=== PATIENT | male | born 1945 | race Caucasian/White ===

== ENCOUNTER 2016-08-14 14:01 | Inpatient (IN) | payer MEDICARE ==
[~2016-08-14] VITALS: Ht 180.3 cm; Wt 77.7 kg
--- NOTE | ~2016-08-14 | HP ---
PATIENT'S NAME: JEREMIAH GARCIA [facility] AGE: 71 Y [address] ROOM: G32[address] [place], [place] [address] LOCATION: [facility] [place] ADMIT DATE: 08/14/2016 History & Physical DISCHARGE DATE: FAMILY PHYSICIAN: PHYSICIAN, UNKNOWN ATTENDING PHYSICIAN: GRAY DE SOUZA DATE OF SERVICE: ADDENDUM: The addendum is because of the report of the CT abdomen and pelvis without contrast and a CT of the chest without contrast just came back. I have went over the findings with the patient and updated the patient about further plan in care. CT abdomen and pelvis without contrast report show widespread metastatic disease. Possible pancreatic primary. Also, possible primary at the right lung base. Bilateral lung bases and pleural nodules suspicious of metastasis. Diffuse liver metastases and likely peritoneal carcinomatosis. If the patient's condition allows, recommend pancreatic protocol CT with contrast to better evaluate. CT of the chest without contrast showed favor diagnosis to be pancreatic primary tumor with lung and pleural and liver metastases with peritoneal carcinomatosis. However, still could not exclude the possibility of a posterior right lower lobe primary lesion. Lack of mediastinal adenopathy argues against a lung primary. Pancreatic protocol CT with contrast might be helpful in further evaluation. If the patient could not get contrast, a noncontrast MRI may also be helpful. Ultimately, tissue diagnosis is required to make a diagnosis and liver biopsy will likely be the highest yield at a lowest risk and if recommended to have a liver biopsy on August 15, 2016 and then a repeat platelet and also coagulation profile should be obtained and the patient should be n.p.o. after midnight and schedule the procedure with interventional radiologist at extension [phone] in the morning. When this finding came back, I went back to the room to explain about the finding to the patient and the patient's family member and nurses in the room. All these are new findings and the plan now I will be coordinating MRI noncontrast of the abdomen and pelvis in the morning and repeat blood work including platelets and coagulation profile and have the hospitalist who is working tomorrow on August 15, 2016 who will be taking over the care to schedule the procedure for the liver biopsy with Interventional Radiology at extension 5317 in the morning. The patient will be n.p.o. after midnight. IV meropenem could be discontinued if there is no further concern about cholecystitis or ascending cholangitis in the morning. I will also be consulting the Oncology in the morning. I will also be consulting GI in the morning. The reason for GI consult will be the pancreatic mass to see if ERCP or endoscopic ultrasound could be performed if necessary to get the pancreatic mass biopsy to make a final diagnosis. For now, I am not going to consult Pulmonology or General Surgery, but could be consulted if necessary with PATIENT'S NAME: JEREMIAH GARCIA [facility] AGE: 71 Y [address] ROOM: [address] [address] LOCATION: [facility] [place] ADMIT DATE: 08/14/2016 History & Physical DISCHARGE DATE: FAMILY PHYSICIAN: PHYSICIAN, UNKNOWN ATTENDING PHYSICIAN: GRAY DE SOUZA Pulmonology for questionable right lower lung primary lung cancer and General Surgery if pancreatic mass resection will be necessary. The reason for the Oncology consult in the morning, which I will be ordering is to keep the oncologist in the loop and the patient will likely require chemotherapy, radiation, or surgical resection depending on Oncology evaluation. Further plan depends on clinical course. Currently, there is no concern for ascending cholangitis given that the common bile duct is normal in diameter and also normal in the intrahepatic ducts. We can consider discontinuing the IV meropenem in the morning if there is no further concern about ascending cholangitis or cholecystitis given that the ultrasound of the abdomen did show diffuse thick wall of the gallbladder, but no stone, pericholecystic fluid, or edema. The patient also does not have any pain in the abdomen. Consider discontinuing IV meropenem in the morning if adequate. I went over the plan of care with the patient and answered every single question that the patient had to his satisfaction. GRAY DE SOUZA MD CC/stacia /[id number] D: T: HISTORY & PHYSICAL
--- NOTE | ~2016-08-14 | DS ---
PATIENT'S NAME: JEREMIAH GARCIA [facility] AGE: 71 Y [address] ROOM: [address] [place], [place] [address] [place] [facility] [place]MIT DATE: 08/14/2016 Discharge Summary DISCHARGE DATE: 08/17/2016 FAMILY PHYSICIAN: Luiza Tarango MD ATTENDING PHYSICIAN: Isaias Gottlieb PRINCIPAL DIAGNOSES: 1. Diffuse metastatic disease. 2. Acute kidney injury on chronic kidney disease 3. 3. Transaminitis. 4. Mild ascites. 5. Diabetes mellitus type 2, insulin dependent. 6. Hypothyroidism. 7. Essential hypertension. PRINCIPAL PROCEDURE: Liver biopsy done by Dr. Ochoa on 08/15. CONSULTING PROVIDERS: Dr. Hutson of Oncology and Erinn Krishnamurthy APRN, of Gastroenterology. HOSPITAL COURSE: Please reference any admitting data to the history and physical as dictated by Dr. Isaias Gottlieb. This is a 71-year-old male who was having increasing abdominal distention and was found to have elevated liver functions, was admitted to the hospital for further diagnostic testing. CTA abdomen and pelvis for further evaluation had shown a widespread metastatic disease to include areas of the pancreas, liver, and lungs. An abdominal ultrasound did not show any discrete mass in the liver, but was very abnormal, mild ascites was noted and mild splenomegaly. For that result, an MRI of the abdomen was obtained, which showed further involvement of the liver and regional lymph node metastasis as well as peritoneal carcinomatosis. The lung lesions appeared to be metastasis as well. Concerns were for primary pancreatic, but primary uncertain. Initially, he was covered for concerns of cholangitis or cholecystitis with meropenem, but this was then discontinued without any evidence of infection or obstruction. A liver biopsy was ordered and obtained without complication. Post-liver biopsy, Oncology consultation was obtained for further recommendations. Specific labs were ordered and are still pending on the day of discharge. His post-biopsy course was relatively unremarkable. He did get IV fluids for an acute kidney injury initially showing a creatinine of 2.2 when his baseline was found to be between 1.5 and 2.0, this was corrected and was 1.4 on the day of discharge. He was started on Aldactone and low-dose loop diuretic without any complications. Constipation contributed to his abdominal distention. X-ray did not show any obstructive pattern. He was given a healthy bowel regimen. Because of his recent ultrasound with mild ascites, there was no further concern. Liver functions showed elevated AST, ALT, and alkaline phosphatase with normal total PATIENT'S NAME: JEREMIAH GARCIA [facility] AGE: 71 Y [address] ROOM: [address] [place], [place] [address] LOCATION: [facility] [place] ADMIT DATE: 08/14/2016 Discharge Summary DISCHARGE DATE: 08/17/2016 FAMILY PHYSICIAN: Luiza Tarango MD ATTENDING PHYSICIAN: Isaias Gottlieb. He was relatively asymptomatic. Hepatitis screen was negative. He did have a Choudhary catheter placed during his stay and was removed on the day of discharge. The patient does self-cath at home without concern or complication. DVT prophylaxis was maintained with pneumatic compression devices. Pain control was optimized with oral oxycodone. The patient was mobilizing independently and safely at the time of discharge. LABORATORY FINDINGS: Blood sugars were monitored without any critical results. A CBC on 08/15 showed white blood cell count of 9.9, hemoglobin of 11.7, hematocrit of 35.5, and a platelet count of 242. A chemistry panel showed a glucose of 179; a BUN of 26; a creatinine of 1.4, down from 2.2, 2.3; sodium of 139; potassium of 4.3, down from 5.6; chloride of 106; CO2 of 24; calcium of 7.8; total protein of 5.2; albumin of 1.9; AST of 115; ALT of 99; alkaline phosphatase of 868; total bilirubin of 0.7; magnesium of 2.1; hemoglobin A1c was 7.3; and INR was 1.21. Urinalysis showed clear yellow urine, a specific gravity of 1.005, a pH of 5.0, leukocytes of 25, nitrites negative, protein 15, glucose negative, ketone negative, urobilinogen negative, bilirubin negative, blood negative, white blood cells 0 to 2, red blood cells negative, epithelial 0 to 2, bacteria were not seen, hyaline casts were 2 to 5. Urine sodium random was 41, and a urine creatinine ratio was 75.0. A GGT level was 387. Procalcitonin was 1.27. Hepatitis panel was negative. Microanalysis: Blood cultures were negative. Urine culture showed contaminants. Liver tissue showed carcinoma and was sent out to [facility] for further evaluation. Pending at the time of discharge were lab values to include alpha-fetoprotein, CEA, CA-125, CA-19-9, and a PSA. DISCHARGE MEDICATIONS: 1. Cymbalta 30 mg p.o. every day. 2. Proscar 5 mg p.o. every day. 3. Fluticasone 50 mcg per puff, 1 spray each nostril every day. 4. Torsemide 20 mg p.o. every day. 5. Neurontin 300 mg p.o. twice daily. 6. Insulin glargine 20 units subcutaneous every night at bedtime. 7. Xalatan 1 drop to each eye every night at bedtime. 8. Levothyroxine 150 mcg p.o. every day. 9. Aldactone 25 mg p.o. every day. 10. Enteric-coated aspirin 81 mg p.o. every day. 11. Peridex 30 mL p.o. everyday after brushing, rinse for 30 seconds and PATIENT'S NAME: JEREMIAH GARCIA [facility] AGE: 71 Y [address] ROOM: [place] [address] [place]: [facility] [place]MIT DATE: 08/14/2016 Discharge Summary DISCHARGE DATE: 08/17/2016 FAMILY PHYSICIAN: Luiza Tarango MD ATTENDING PHYSICIAN: Isaias Gottlieb. 12. Vitamin D3 2000 units p.o. every day. 13. Lucernemines-3 fatty acids 1200 mg p.o. twice daily. 14. Lisinopril 2.5 mg p.o. every day. 15. Metformin 1000 mg p.o. twice daily. 16. Methenamine 1 g p.o. every day. 17. Multivitamin tablet p.o. twice daily. 18. Polyethylene glycol 17 g p.o. every day as needed. 19. Potassium chloride 20 mEq p.o. once daily. 20. Crestor 10 mg p.o. every day. 21. Depo-Testosterone 100 mg IM every 14 days. 22. Oxycodone 5 mg 1 tablet p.o. every 8 hours as needed for moderate-to- severe pain. DISCHARGE INSTRUCTIONS: The patient will be discharged to home with diet to be diabetic, activity to be as tolerated, and to follow up with Luiza Tarango in the next 3 to 4 days, to have laboratory values of the CBC and CMS to be done at followup. It is recommended that he continue to check his blood sugars at least 3 times a day; he is to record and take to his PCP; if they fall less than 60 or greater than 400, to call or go to the emergency room. As in regard to his liver biopsy, it is directed by the Oncology team. The patient is a . We will try to arrange outpatient followup accordingly. For now, [facility] will follow up after the biopsy is complete. The above line of information was discussed with the patient, and he and his spouse stated complete understanding with all questions answered satisfactorily. Total time arranging discharge was greater than 30 minutes. Thank you for allowing us to participate in the care of this patient while at [facility]. SANDRA MANDUJANO APRN, APRN FOR MD MARLEE INTERIANO/stacia /[id number] CC: Luiza Tarango MD d: 08/18/16 0928 t: 08/21/16 1327, DISCHARGE SUMMARY
--- NOTE | ~2016-08-14 | LTR ---
PATIENT'S NAME: ABEL RODRIGUEZ [facility] AGE: 71 Y [address] ROOM: [place] [address] [place] [facility] [place]: 08/14/2016 Letter DISCHARGE DATE: 08/17/2016 FAMILY PHYSICIAN: Luiza Tarango MD ATTENDING PHYSICIAN: Isaias Gottlieb August 17, 2016 Re: ABEL RODRIGUEZ [facility] To [facility] Abel Rodriguez was seen in the hospital and the consult was dictated. Subsequent to the consult, the liver biopsy was obtained and documented the presence of cancer. The pathologist believes it may be a hepatocellular carcinoma, but acknowledged it could be an adenocarcinoma or another cancer. The tissue was then forwarded to the [facility] in [place], [place] for immunohistochemical stains. A PSA, CEA, CA-19-9, and alpha fetoprotein are still pending. It was planned to discharge the patient. Because he is from [place], the veterans administration will refer him to the Cancer Center at the [facility] which is his preference. We made arrangements for [facility] to call him with an appointment time. We visited with the patient about the treatment goals which will be palliative, the differential diagnosis, the possibility that his age 71 and his past use of alcohol or tobacco contributed to this. We told him there was no current role for surgery or radiation, but he would need to weigh the pros and cons of systemic therapy versus best supportive care possibly with hospice depending on his choices when his definitive diagnosis is made. He also knows that it may not be possible to make the diagnosis with the immunohistochemical stains and other molecular studies or radiology studies or even diagnostic endoscopies might be required. If so, these will be done in [place]. MD ABEBA Roth/carlinl /[id number] CC: Isaias Gottlieb MD PATIENT'S NAME: ABEL RODRIGUEZ [facility] AGE: 71 Y [address] ROOM: [place] [address] [place] [facility] [place]: 08/14/2016 Letter DISCHARGE DATE: 08/17/2016 FAMILY PHYSICIAN: Luiza Tarango MD ATTENDING PHYSICIAN: Isaias Gottlieb APRN Kathy Murphy, MD Arif A Nawaz, MD
--- NOTE | ~2016-08-14 | HP ---
PATIENT'S NAME: JEREMIAH GARCIA [facility] AGE: 71 Y [address] ROOM: [id number] [place], [place] [address] [place] [facility] [place]: 08/14/2016 History & Physical DISCHARGE DATE: FAMILY PHYSICIAN: PHYSICIAN, UNKNOWN ATTENDING PHYSICIAN: GRAY DE SOUZA DATE OF SERVICE: CHIEF COMPLAINT: Abdominal distention, decreased urine output, and weight gain of 6 pounds in the last 4 days as well as a decreased oral intake in the last 4 days also. HISTORY OF PRESENT ILLNESS: This is a 71-year-old male who says that for the last 3-4 weeks he has been having decreased oral intake; and for the last 4 days, he has been experiencing decreased urine output as well as a 6 pounds weight gain and also generalized weakness and lightheadedness sometimes at rest and sometimes from standing. Last Sunday, while the patient was on his feet, he states that due to prolonged standing, he felt dizzy, and he fell on the left-side hitting the left-side of the chest on the ground. He has some minor pain at that time, but the pain has already gone away by now. Because of weight gain of 6 pounds and also the abdominal distention that happened 4 days ago, the patient went to outside facility at [facility] in [place], where only thing performed over there was the blood work with unremarkable CBC and basic metabolic panel was remarkable for creatinine of 2.33 and BUN at 39, not sure what is the baseline, there is no blood work to compare in the computer. The patient was also found to have elevated liver function with transaminitis with AST of 147, ALT 125, with elevation of the total alkaline phosphatase at 1094. Total bilirubin was normal at 0.8. The only imaging test that the patient had was a chest x-ray and it showed no rib fracture. No heart failure. Unremarkable chest x-ray finding except some small atelectatic changes near the right minor fissure. Because of the transaminitis, the patient was sent over here for further evaluation. No imaging test was performed from the outside facility regarding the abdomen. The patient denies any fever or chills and he has benign prostatic hypertrophy; and he at home at baseline, he self-catheterize his bladder 3-4 times a day and has been doing this for quite sometime already. REVIEW OF SYSTEMS: As mentioned in the history of present illness. All other systems reviewed and negative except those mentioned in history of present illness. PAST MEDICAL HISTORY: According to the medical records that came with the patient: 1. Diabetes type 2. PATIENT'S NAME: JEREMIAH GARCIA [facility] AGE: 71 Y [address] ROOM: [place] [address] [place]: [facility] [place] DATE: 08/14/2016 History & Physical DISCHARGE DATE: FAMILY PHYSICIAN: PHYSICIAN, UNKNOWN ATTENDING PHYSICIAN: GRAY DE SOUZA 2. Hypertension. 3. Benign prostatic hypertrophy. 4. Hypothyroidism. 5. Hyperlipidemia. 6. Peripheral neuropathy. 7. Depression. ALLERGIES: NO KNOWN DRUG ALLERGIES, ACCORDING TO THE PATIENT. HOME MEDICATIONS: Currently, it is being reconciled. SOCIAL HISTORY: The patient was a former alcohol drinker about 6 pack of beer every 2 days for the last 25 years and he quit about 2 years ago. He was a former cigarette smoker about 2 packs per day for 39 years and he quit in 2012. He denies any alcohol withdrawal seizure or delirium tremens in the past. He denies any illegal drug use. FAMILY HISTORY: Father from some kind of cardiac complication, also had open heart surgery bypass in advanced age. Mother from complication from breast cancer and also had history of mitral valve repair from mitral valve prolapse in the past at advanced age. No known liver pathology in the family. PAST SURGICAL HISTORY: None according to the patient. PHYSICAL EXAMINATION: VITAL SIGNS: At the time of my dictation, temperature 97.9, heart rate 94, respirations 24, blood pressure 117/70, and saturation 94% on room air. Pain 0/10. GENERAL APPEARANCE: Alert and oriented x3, in no acute distress. HEENT: Anicteric sclerae. Pupils equally round and reactive to light. Extraocular muscles intact. Nasal turbinates normal bilaterally. Moist oral mucosa. No oral thrush. NECK: No JVD. No cervical lymphadenopathy. No neck stiffness. CARDIOVASCULAR: Regular rate and rhythm. No murmur, no rubs, no gallops. RESPIRATORY: Clear. Chest wall nontender to palpation. ABDOMEN: Distended, soft, no abdominal rigidity, I could palpate the liver on the right upper quadrant on deep palpation, no other palpable mass, mild ascites, bowel sounds decreased, no abdominal rigidity, no tenderness, distended. No rebound tenderness. Nontender to palpation. EXTREMITIES: No edema in upper or lower extremity. PATIENT'S NAME: JEREMIAH GARCIA [facility] AGE: 71 Y [address] ROOM: [address] [address] [place] [facility] [place] DATE: 08/14/2016 History & Physical DISCHARGE DATE: FAMILY PHYSICIAN: PHYSICIAN, UNKNOWN ATTENDING PHYSICIAN: GRAY DE SOUZA NEUROLOGICAL: Grossly nonfocal. SKIN: No ulcer, no rash, no cyanosis. No jaundice. MUSCULOSKELETAL: No joint pain. No muscle pain. Range of motion intact. LABORATORY DATA: Lactic acid 1.5. White blood cells 8.1, hemoglobin 11.6, hematocrit 35.1, MCV 97.8, and platelet 194. Glucose 104, BUN 39, creatinine 2.2, sodium 140, potassium 5.6, chloride 104, CO2 29, calcium 8.4, total protein 6.4, albumin 2.5, AST 127, ALT 100, alkaline phosphatase 939, total bilirubin 0.7, direct bilirubin 0.3, anion gap 12.6, GFR 30, and globulin 3.9. A1c pending. INR 1.14, PTT 24, procalcitonin 1.75. IMAGING STUDIES: 1. Chest x-ray performed from the outside facility unremarkable. 2. Ultrasound of the abdomen on admission here show heterogeneous echotexture with rounding of the liver edges with a slightly nodular surface. No discrete mass. Gallbladder with diffusely thick-walled. No stone. Normal common bile duct caliber and intrahepatic ducts. Pancreas is not well-visualized. Spleen is mildly enlarged. Both kidneys are normal in size and echotexture. No hydronephrosis. No suspicious lesion. Impression abnormal liver, this is probably secondary to chronic parenchymal disease. Subtle diffuse metastatic disease may also produce this appearance. Reactive gallbladder wall thickening. No stones. Mild ascites. Mild splenomegaly. 3. CT abdomen and pelvis without contrast, the report is pending. 4. EKG: Currently, pending. ASSESSMENT AND PLAN: 1. Regarding his transaminitis: The transaminitis show obstructive pattern with elevation of alkaline phosphatase. Ultrasound of the abdomen was not quite clear about the finding, there is a possible metastatic finding in the liver, but could also be from chronic liver disease finding. Currently, the CT abdomen and pelvis without contrast is pending. This will give us a better visualization of the pancreas. The patient is not jaundiced. Currently, the etiology of his transaminitis is not quite clear. I will be getting additional workup including hepatitis panel A, B, and C. I will keep him n.p.o. for now given that there is a questionable gallbladder wall thickening, could be from cholecystitis, but the patient does not have any pain in the abdomen at all. I will keep him n.p.o. for now with intravenous fluid hydration and also pain control with intravenous morphine p.r.n. and intravenous fentanyl p.r.n. I will cover him with antibiotics given that he has high procalcitonin and reactive gallbladder wall thickening. I will give him intravenous meropenem, which will cover him for the probable cholecystitis as well as the patient is having high-risk of having cholangitis if there is any PATIENT'S NAME: JEREMIAH GARCIA [facility] AGE: 71 Y [address] ROOM: [place] [address] [place] [facility] [place] DATE: 08/14/2016 History & Physical DISCHARGE DATE: FAMILY PHYSICIAN: PHYSICIAN, UNKNOWN ATTENDING PHYSICIAN: GRAY DE SOUZA biliary tree obstruction, which was not seen on the abdominal ultrasound. Blood culture and urine culture have been obtained already and are pending. I will check a urinalysis and urine electrolytes as well to workup for the acute kidney injury or possibly chronic kidney disease. Differential here could be from cholecystitis. There is no stone visualized. The patient could also be having acalculous cholecystitis if there is no stone visualized. Therefore, at that time, HIDA scan could be useful. Either way, I am going to wait for the CT abdomen and pelvis first to come back and further plan can depend on the finding. For now, I will get a GI consult involved and if necessary General Surgery will be involved for the possible cholecystitis. Again, the patient does not have any pain at all in the abdomen. Further plan depends on clinical course. 2. Regarding his acute kidney injury on chronic kidney disease: We do not have any baseline to compare. I will hydrate the patient with normal saline maintenance at 75 mL/hr for now and I will do urine electrolytes including urea, urine sodium, urine creatinine to calculate the fraction excretion of the urea given that he takes diuretics at home. Therefore, fraction excretion of sodium will be useless in this case. Ultrasound did not show any hydronephrosis. I will put a Choudhary in with the patient given that he usually self-catheterize this in the hospital. I will put a Choudhary in to monitor urine output. The etiology of acute kidney injury could be from decreased oral intake in the last 3-4 weeks. Therefore, prerenal acute kidney injury from hypovolemia from decreased oral intake could be in the differential. Intravenous fluid hydration for now will be like intravenous fluids challenge to see if he responds. 3. Regarding his hyperkalemia in the setting of acute kidney disease on chronic kidney disease: I will get EKG right now looking for any hyperkalemic changes. Given that EKG would not be done right away, I will cover him with intravenous calcium gluconate 1 g right now to stabilize the cardiac membrane. I will also give him the intravenous regular insulin 10 units in 50% of the dextrose 500 mL run over 1 hour to transiently decreased the hyperkalemia and also give him p.o. Kayexalate 30 g p.o. 1 dose right now to remove the hyperkalemia. Check another basic metabolic panel later tonight to monitor potassium level. 4. Regarding his diabetes, type 2: Subcutaneous regular insulin q.6 h. low- dose while n.p.o. and subcutaneous aspart insulin low dose a.c., h.s. while eating diet. For now, he is n.p.o., awaiting further testing study to decide the next step in the management. 5. Deep vein thrombosis prophylaxis: The patient will be on compression devices and awaiting further study. 6. Code status: He is a full code. Time spent on the day of admission in care 45 minutes including chart review, interviewing and examining the patient, addressing all the questions and concerns that the patient had, and then going over the plan of care with the PATIENT'S NAME: JEREMIAH GARCIA [facility] AGE: 71 Y [address] ROOM: [place] [address] [place] [facility] [place] DATE: 08/14/2016 History & Physical DISCHARGE DATE: FAMILY PHYSICIAN: PHYSICIAN, UNKNOWN ATTENDING PHYSICIAN: GRAY DE SOUZA patient and the nurses. Further plan depends on clinical course. MD DRU WINTERS/stacia /[id number] D: [id number] T: [id number] HISTORY & PHYSICAL
--- NOTE | ~2016-08-14 | CON ---
PATIENT'S NAME: JEREMIAH GARCIA [facility] AGE: 71 Y [address] ROOM: [place] [address] LOCATION: [facility] [place] DATE: 08/14/2016 Consultation DISCHARGE DATE: FAMILY PHYSICIAN: PHYSICIAN, UNKNOWN ATTENDING PHYSICIAN: GRAY DE SOUZA DATE OF CONSULTATION: 08/15/2016 REFERRING PHYSICIAN: Liang Hoang MD REASON FOR CONSULTATION: Metastatic liver disease. HISTORY OF PRESENT ILLNESS: This is a pleasant 71-year-old male who states over the past 3 to 4 weeks, he has had noticeable decrease in oral intake, abdominal bloating as well as a 6 pounds weight gain. He does state that he has noticed that his urine output has decreased with generalized weakness and lightheadedness. He does recall having dizzy episodes with 1 fall. He was seen at [facility] at [place] where blood work was returned with showing a creatinine of 2.33 and BUN of 39, interestingly his liver function tests were elevated with an AST of 147, ALT of 125, and total alkaline phosphatase of 1094. Total bilirubin at that time was normal at 0.8. The patient was then transferred to [facility] for definitive care. The patient was seen and examined. He does state that he has noticed increased abdominal distention. He has had a fluctuation of his weight with losing approximately 40 pounds though recently has been stable except for the mild weight gain of 6 pounds in the past few weeks. The patient does self catheterize at home 3 to 4 times per day with no complaints. The patient does have some generalized abdominal discomfort though is vague with his description. The patient denies any chest pain, chest pressure, shortness of breath, fever, chills, night sweats, or weight loss. CT scan was completed on admission to [facility] as well as an abdominal ultrasound both suspicious for metastatic liver disease. PAST MEDICAL HISTORY: 1. Diabetes type 2. 2. Hypertension. 3. Benign prostatic hypertrophy. 4. Hypothyroidism. 5. Hyperlipidemia. 6. Peripheral neuropathy. 7. Depression. PAST SURGICAL HISTORY: PATIENT'S NAME: JEREMIAH GARCIA [facility] AGE: 71 Y [address] ROOM: [place] [address] LOCATION: [facility] [place] ADMIT DATE: 08/14/2016 Consultation DISCHARGE DATE: FAMILY PHYSICIAN: PHYSICIAN, UNKNOWN ATTENDING PHYSICIAN: GRAY DE SOUZA No past surgical history. SOCIAL HISTORY: The patient is and currently resides in [place]. He is a former smoker and quit in 2012. He denies any illicit drug use. He is a former alcohol drinker, drinking approximately 6 pack of beers per day every 2 days for the last 25 years, though denies any alcohol use within the last 2 years. FAMILY HISTORY: The patient denies any pancreatic or liver disease. The patient's father from cardiac complication during his open heart bypass surgery. The patient's mother from complications of breast cancer. She also had a history of mitral valve repair. ALLERGIES: NO KNOWN MEDICATION ALLERGIES. CURRENT MEDICATIONS: Please refer to the medication administration record. REVIEW OF SYSTEMS: A 10-point review of systems was completed. All were negative except for those identified in the history of present illness. PHYSICAL EXAMINATION: GENERAL: A very pleasant 71-year-old female, sitting in the chair, who appears to be in no acute distress. VITAL SIGNS: Temperature 99.3, pulse of 107, respirations of 14, blood pressure 121/67, oxygen saturations 93% on room air. SKIN: [place], warm, and dry. No jaundice. No jaundice. HEENT: Head is normocephalic and atraumatic. Pupils are equal, round, and reactive to light. Sclerae are clear. Nonicteric. Oral mucosa is pink and moist. No thyromegaly. NECK: Soft and supple. CARDIOVASCULAR: Regular. Normal S1, S2. RESPIRATORY: Respirations even and unlabored. LUNGS: Clear to auscultation. ABDOMEN: Soft, round, and mildly distended. Bowel sounds positive x4 quadrants. MUSCULOSKELETAL: No muscle weakness or atrophy. EXTREMITIES: No clubbing, cyanosis, or edema. NEUROLOGIC: Grossly nonfocal. LABS AND DIAGNOSTICS: Lactate of 1.9. White blood cell count of 9.9, hemoglobin 11.7, hematocrit of PATIENT'S NAME: JEREMIAH GARCIA [facility] AGE: 71 Y [address] ROOM: [address] [address] LOCATION: [facility] [place] ADMIT DATE: 08/14/2016 Consultation DISCHARGE DATE: FAMILY PHYSICIAN: PHYSICIAN, UNKNOWN ATTENDING PHYSICIAN: GRAY DE SOUZA 35.5, and platelets of 242. Chemistry panel includes a glucose of 220, BUN of 34, creatinine 2.0, sodium of 141, potassium of 4.7, chloride 105, CO2 of 28. Albumin of 2.3, AST of 141, ALT of 109,, alkaline phosphatase of 995, total bilirubin is 0.7, direct bilirubin is 0.4. Hemoglobin A1c was 7.3. Pro-time of 12.7, INR is 1.21, PTT of 24, GGT of 387. Procalcitonin of 1.27. Hepatitis A, B, and C panels are pending at this time. The patient underwent an abdominal ultrasound on admission to [facility] showing abnormal liver possibly reflecting chronic parenchymal disease, subtle diffuse metastatic disease may also produce this appearance, reactive gallbladder wall thickening with no stones, mild ascites, mild splenomegaly. CT abdomen and pelvis was also completed without contrast. This showed widespread metastatic disease, possible pancreatic primary versus primary bilateral lung base and pleural nodule suspicious of diffuse liver metastasis and likely peritoneal carcinomatosis. ASSESSMENT AND PLAN: Again, this is a very pleasant 71-year-old male who was recently transferred from an outside facility with abdominal distention as well as abnormal liver enzymes. Ultimately, the patient underwent a CT abdomen and pelvis showing liver metastatic disease with possible primaries secondary to the pancreas versus lung. I discussed this CT with Dr. Chavez Ochoa as he is recommending at this time to undergo a liver biopsy for identification and the diagnosis. If the pancreatic tissue sampling as needed per Oncology recommendations, the patient will need to be referred out for an endoscopic ultrasound. At this time, we will go forth with the liver biopsy to obtain sampling as for diagnosis. Further recommendations to be given after receipt of the liver biopsy as well as Oncology's recommendations. Thank you for this consult and allowing us to participate in the care of this patient. JOSE ANTONIO COOLEY APRN FOR MD MARIANA BHARDWAJ/modl /[id number] d: 08/15/16 1101 t: 05/30/17 1034, CONSULTATION REPORT
--- NOTE | ~2016-08-14 | CON ---
PATIENT'S NAME: ABEL [facility]ODRIGUEZ [facility] AGE: 71 Y [address] ROOM: [id number] [place], [place] [address] LOCATION: [facility] ADMIT DATE: 08/14/2016 Consultation DISCHARGE DATE: FAMILY PHYSICIAN: Luiza Tarango MD ATTENDING PHYSICIAN: GRAY DE SOUZA REFERRING PHYSICIAN: Liang Hoang MD Consult to Dr. De Souza. REASON FOR CONSULTATION: Abel Rodriguez is a 71-year-old man with probable metastatic cancer. HISTORY OF THE PRESENT ILLNESS: The history of the present illness is obtained for Mr. Rodriguez who is a good historian; Mrs. Rodriguez who is also helpful; the nursing staff; and review of the current [facility] chart as well as the records forwarded by our colleagues from [place], [place]. Mr. Rodriguez was probably in his normal state of health until early July 2016. He lived in [place], [place] with Mrs. Rodriguez and his mother. He has been retired for 11 years. He had no formal or informal exercise program. 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 He would use a cane when he traveled to shop and trade in other cities. The patient could still drive and do light work. He used a push powder carrier. In early July 2016, the patient developed anorexia for 3 weeks, which was pretty constant. On or around 08/09/2016, the patient began to gain weight rapidly. He had 3 episodes of tremors in his arms and legs, which were transient but were associated with falls. The patient did not seriously hurt himself with the falls. The tremors resolved with the falls. Mrs. Rodriguez was alarmed and insisted he report to the emergency room in [place], [place] for evaluation of these signs and symptoms. In the [facility], the white count was 9200 with 75% neutrophils and 11% lymphocytes, hemoglobin 13.2 g/dL, MCV 98, and platelets 241,000. Sodium was 139, potassium 5.1, creatinine 2.33, total albumin 2.9 g/dL, alkaline phosphatase 1094 U/L, AST 147 U/L, ALT 125 U/dL, and total bilirubin was normal at 0.8 mg/dL. The BNP was normal at 40 pg/mL. A chest x-ray revealed no sign of rib fracture. Folate was greater than 20. Vitamin D was 54 ng/mL, but these were old labs at the [facility]. When these labs had been obtained on 04/03/2016, EGFR was 40. There were no liver function tests available on those earlier blood tests at the [facility]. Mr. Rodriguez was referred to [facility]. His urinalysis is unremarkable. The random urine sodium was 41 mmol/L, urine urea 469 mg/dL, PATIENT'S NAME: ABEL RODRIGUEZ [facility] AGE: 71 Y [address] ROOM: [place] [address] LOCATION: [facility] ADMIT DATE: 08/14/2016 Consultation DISCHARGE DATE: FAMILY PHYSICIAN: Luiza Tarango MD ATTENDING PHYSICIAN: GRAY DE SOUZA and creatinine of 75 mg/dL. Hepatitis A, B, and C screening tests are pending. Procalcitonin was slightly elevated at 1.75 mg/mL. CBC with differential was somewhat similar, although the hemoglobin was 11.7 g/dL. Glucose was 220 mg/dL. GGTP was elevated at 387 International Units/L. Hemoglobin A1c was 7.3%. The EGFR was 33 mL/m. An ultrasound of the abdomen revealed heterogeneous texture in the liver. The gallbladder wall was diffusely thickened. The pancreas was not well visualized. There was mild ascites and splenomegaly. The CT scan of the abdomen and pelvis revealed multiple hepatic nodules compatible with metastatic disease as well as anterior pericardial, upper abdominal, and retroperitoneal adenopathy. There was omental nodularity compatible with carcinomatosis as well as mild ascites. CAT scan of the thorax revealed a 3-cm pleural-based nodule in the posterior right lower lobe portion of the lung. The nodule had spiculated margins. Bilateral nodular pleural thickening was noted with mild bilateral subcentimeter pulmonary nodules. Dr. De Souza scheduled a liver biopsy which was performed today, 08/15/16, and which the patient tolerated well. The report is pending. Mr. Rodriguez has no personal history of cancer. The patient smoked 1 pack per day of cigarettes for 40 years, but has abstained since 2002. The patient drank beer heavily (0-ghfv-n-day) for about a 4-5 year period, perhaps 8- 10 years ago. ACTIVE MEDICAL PROBLEMS, CHRONIC AND DIAGNOSED: 1. Type 2 diabetes mellitus, noted on a regular office checkup in 2002. The patient checks his blood sugars at home 3 times a day and checks his hemoglobin A1c's every 3 months. His last hemoglobin A1c was 6.2%. The patient's diabetes has not been labile, but has been complicated by neuropathy involving the soles of his feet and to the MCPs of his hands. As noted, the patient uses a cane. 2. Essential arterial hypertension noted in 1993. The patient had palpitations, this has not been labile, associated with any end-organ damage. 3. Benign prostatic hypertrophy. The patient has been treated with finasteride and tamsulosin. 4. Hypothyroidism, first noted in 1995 when he actually may have been hyperthyroid as he had tachycardia and sweats. The patient does not know if he had radioactive iodine or other treatments, but he does know he has been on no thyroid medications except the levothyroxine. 5. Hyperlipidemia, noted in 1993. 6. Depression, treated with medications. The patient has not been suicidal or received any counseling. Mrs. Rodriguez makes a point he felt better on this treatment. 7. Tobacco use, abstained since 2002, 1 pack per day for 40 years, PATIENT'S NAME: ABEL RODRIGUEZ [facility] AGE: 71 Y [address] ROOM: [place] [address] LOCATION: [facility] ADMIT DATE: 08/14/2016 Consultation DISCHARGE DATE: FAMILY PHYSICIAN: Luiza Tarango MD ATTENDING PHYSICIAN: GRAY DE SOUZA 8. (?)Excessive alcohol intake. The patient has had a beer every 4 months for the last 2 years and had 1-2 beers a day for the 4 years before that. Before that, the patient had a 6-pack beer a day for 4 years, but rarely above 1 a day then before that. 9. (?)Portal hypertension. The patient has mild ascites and splenomegaly and an abnormal liver. 10. Testosterone deficiency. The patient has been on testosterone injections every 2 weeks for 7 years as he had difficulty with cutaneous hypersensitivity from testosterone patches. 11. Left eye glaucoma, presumably open angle type. 12. Subjective decreased auditory acuity. [facility] check[facility]. 13. Hypotonic bladder for 4 years. This may have been related to his prostatic hypertrophy. The patient self catheterizes four times daily. ACUTE MEDICAL ILLNESS (RESOLVED), PAST SURGERIES, INJURIES: 1. 2012-incomplete colonoscopy. Another one was scheduled in 2018. IMMUNIZATIONS: Positive flu. Positive Pneumovax. Positive tetanus. Positive varicella zoster virus. TOBACCO: 1 pack per day for 40 years, abstained since 2002. ALCOHOL: A beer every 4 months for 2 years, 1-2 beers a day for 4 years before that, a 6 pack a day for 4 years before that and rare 2 daily beers before that. CAFFEINE: A cup of coffee per day. FAMILY HISTORY: Paternal uncle at age 50 of tobacco-related lung cancer. SOCIAL HISTORY: and Mrs. Rodriguez have lived in [place], [place] since 1979. The patient was born in [place], [place], but moved to [place], [place] and attended school there from kindergarten until he graduated a [employer]. 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 He worked in [employer] and the [employer]. 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 They have a son in [place], [place] and a daughter in [place], [place]. The Cornel are not spiritism goers. PATIENT'S NAME: ABEL RODRIGUEZ [facility] AGE: 71 Y [address] ROOM: [place] [address] LOCATION: [facility] ADMIT DATE: 08/14/2016 Consultation DISCHARGE DATE: FAMILY PHYSICIAN: Luiza Tarango MD ATTENDING PHYSICIAN: GRAY DE SOUZA PHYSICAL EXAMINATION: VITAL SIGNS: Pulse 100 and regular, blood pressure 130/75, respiratory rate 18, temperature 98.9, height 71 inches, weight 77.7 kg (171 pounds), and BMI 23.9 kg/m2. GENERAL: Well-developed, reasonably well-nourished, 71-year-old, male, with some mild abdominal distention. HEENT: Unremarkable. LYMPH NODES: The patient has shotty bilateral inguinal lymphadenopathy. SKIN: Whitmore angiomas nevi. NECK: Without JVD or carotid bruits. CHEST: Clear. Decreased breath sounds at the bases. CV: Regular rhythm. No murmurs, bruits, or adventitious sounds. ABDOMEN: Abdominal girth not obtained. The patient may have a small fluid wave. The patient has palpable splenomegaly and hepatomegaly just below the costal margin. No masses, tenderness, or organomegaly. GENITALIA AND RECTAL: Uncircumcised. Choudhary catheter in place. EXTREMITIES: Pulses 2+ throughout. NEURO: Cranial nerves 2-12 intact. Strength 5/5 throughout. Deep tendon reflexes not obtained. IMPRESSION: 1. 71-year-old man with a 3-week history of anorexia; 3-4 day history of abdominal discomfort, distention, and early satiety; shakiness with 3 falls; longstanding intermittent constipation; oliguria; mild normocytic anemia; hypoalbuminemia; renal insufficiency; highly elevated alkaline phosphatase and GGTP; moderately elevated AST and ALT; small fluid wave with some hepatosplenomegaly; diffuse hepatic nodules consistent with metastatic cancer; anterior pericardial, upper abdominal and omental and retroperitoneal adenopathy; omental nodularity, suspicious for carcinomatosis; "subtle changes in the body and neck of the pancreas" consistent with but not diagnostic of cancer; a 3-cm pleural-based right lower lobe nodule and multiple bilateral subcentimeter pulmonary nodules. The patient has a 20-lflz-nvmf history of smoking, but has abstained since 2002 and did heavily ingest alcohol for short periods of time. 2. This is probably a tobacco-related GI, hepatobiliary, pancreatic, or pulmonary cancer. 3. The workup should be guided by the tissue as should the treatment. RECOMMEND: Diagnostic: 1. Await the liver biopsy results. 2. Hemoccult stools x3. Treatment: 1. No antineoplastic therapy at this point. Patient Education: PATIENT'S NAME: ABEL R[facility]RIGUEZ [facility] AGE: 71 Y [address] ROOM: [place] [address] LOCATION: [facility] ADMIT DATE: 08/14/2016 Consultation DISCHARGE DATE: FAMILY PHYSICIAN: Luiza Tarango MD ATTENDING PHYSICIAN: GRAY DE SOUZA 1. Discussed our concern he has cancer and reviewed the differential diagnosis. ALETHA DAILEY MD GKB/modl /[id number] CC: MIL Tate PA-C [place], [place] d: [birth year] t: 08/17/16 1759, CONSULTATION REPORT
--- NOTE | 2016-08-14 15:17 | NUR ---
Patient is 71 yo male admitted from [facility] with elevated liver enzymes. patient reports that he has an enlarged prostate and has been doing self-caths for the past 4 years or so. states the amount has gone down in the last couple of days as his abdomen has been getting bigger. patient has history of drinking. he states he would buy a 6 pack every night and it would last him 2-3 days and he would buy a 12 pack every Sunday night. he states he quit drinking 2 years ago, but also states he bought a 6 pack last September and he still has one beer left. was also a heavy smoker for 39 years, quit in 2002. education is given as documented. patient denies questions. pneumatics are on bilat calves. call light is within reach. patient denies questions or needs at this time. report is given to SARA Young.
[2016-08-14 16:13] LABS: BASOPHIL % 0.2 %; EOSINOPHIL # 0.4 K/uL (0.0-0.5); EOSINOPHIL % 5.4 %; HEMATOCRIT 35.1 % (37.0-53.0); HEMOGLOBIN 11.6 g/dL (11.0-16.0); IMMATURE GRANULOCYTE % 0.5 %; LYMPHOCYTE % 12.5 %; MCH 32.3 pg (27.0-34.0); MCV 97.8 fl (83.0-98.0); MONOCYTE # 0.7 K/uL (0.0-1.0); MONOCYTE % 8.5 %; MPV 10.3 fl (9.4-12.4); NEUTROPHIL # (ANC) 5.9 K/uL (1.4-9.0); NEUTROPHIL % 72.9 %; NRBC % 0 /100WBC (0-0.00); PLATELET COUNT 194 K/uL (150-450); RBC 3.59 M/uL (3.50-5.50); RDW-CV 12.5 % (11.9-14.6); WBC 8.1 K/uL (4.0-11.0)
[2016-08-14 16:23] LABS: INR - (THERAPEUTIC) 1.14 (0.92-1.07); PTT 24 SECONDS (25-32)
[2016-08-14 16:35] LABS: ALBUMIN 2.5 gm/dL (3.5-5.0); ANION GAP 12.6 (10.0-19.0); CALCIUM 8.4 mg/dL (8.5-10.5); CREATININE 2.2 mg/dL (0.6-1.3); POTASSIUM 5.6 mMol/L (3.7-5.1); TOTAL BILIRUBIN 0.7 mg/dL (0.0-1.5); TOTAL PROTEIN 6.4 g/dL (6.0-8.4)
[2016-08-14] MEDS ORDERED: ASPIRIN LO-DOSE81 MG PO (16:52)
[2016-08-14] MEDS ORDERED: PERIDEX15 ML PO (16:53)
[2016-08-14] MEDS ORDERED: VITAMIN D-32000 UNI1 PO (16:53)
[2016-08-14] MEDS ORDERED: CYMBALTA30 MG PO (16:54)
[2016-08-14] MEDS ORDERED: PROSCAR5 MG PO (16:54)
[2016-08-14] MEDS ORDERED: FISH OIL 1,2001 EAC1 PO (16:54)
[2016-08-14] MEDS ORDERED: NEURONTIN300 MG PO (16:55)
[2016-08-14] MEDS ORDERED: XALATAN2.5 ML OPHTH (16:55)
[2016-08-14] MEDS ORDERED: LANTUS SOL100 UNIT/1 SUB-Q (16:55)
[2016-08-14] MEDS ORDERED: PRINIVIL (ZESTRI5 MG PO (16:56)
[2016-08-14] MEDS ORDERED: LEVOTHROID (S150 MCG PO (16:56)
[2016-08-14] MEDS ORDERED: GLUCOPHAGE1000 MG PO (16:56)
[2016-08-14] MEDS ORDERED: METHENAMINE HIPP1 GM PO (16:57)
[2016-08-14] MEDS ORDERED: MULTIPLE VITAM1 EACH PO (16:58)
[2016-08-14] MEDS ORDERED: MIRALAX PO527 GM/BOT PO (16:58)
[2016-08-14] MEDS ORDERED: CRESTOR20 MG PO (16:59)
[2016-08-14] MEDS ORDERED: K-TAB ER20 MEQ PO (16:59)
[2016-08-14] MEDS ORDERED: DEMADEX20 M1 PO (17:00)
[2016-08-14] MEDS ORDERED: DEPO TESTOS200 MG/ML IM (17:00)
[2016-08-14] MEDS ORDERED: DEMADEX20 MG PO (17:01)
[2016-08-14] MEDS ORDERED: FLONASE 50 MCG/16 GM NOSE (17:01)
[2016-08-14 20:07] LABS: BILIRUBIN URINE NEGATIVE (NEGATIVE); BLOOD URINE NEGATIVE /UL (NEGATIVE); GLUCOSE URINE NEGATIVE (NEGATIVE); KETONE URINE NEGATIVE (NEGATIVE); LEUKOCYTES URINE 25 /UL (NEGATIVE); NITRITE URINE NEGATIVE (NEGATIVE); PROTEIN URINE 15 mg/dL (NEGATIVE); SPEC GRAVITY URINE 1.005 (1.003-1.035); UROBILINOGEN URINE NORMAL (NORMAL)
[2016-08-14 20:29] LABS: COLOR URINE YELLOW (YELLOW); TURBIDITY URINE CLEAR (CLEAR)
[2016-08-14 20:34] LABS: RBC URINE NEGATIVE #/HPF (NEGATIVE); WBC URINE 0-2 #/HPF (NEGATIVE)
[2016-08-14 20:36] LABS: BACTERIA URINE NEGATIVE (NEGATIVE); EPITHELIAL URINE 0-2 #/HPF (NEGATIVE)
[2016-08-14 23:38] LABS: ANION GAP 11.7 (10.0-19.0); CALCIUM 8.9 mg/dL (8.5-10.5); CREATININE 2.3 mg/dL (0.6-1.3); POTASSIUM 4.7 mMol/L (3.7-5.1)
--- NOTE | 2016-08-15 03:30 | NUR ---
SIGNIFICANT EVENT: Patient alert & oriented x3. VSS on RA - expresses dizziness with position changes. Choudhary inserted - patent, draining clear, dark yellow urine. MRI abd/pelvis this a.m. to determine pelvic mass. Had abd US last night. PIV to L) hand infusing NS at 75 mL/hr. Had HS snack of 1 sandwich with Araceli ulloa, 1 apple juice, 1 OJ, and 2 jellos. NPO since RI for the MRI but will be diabetic diet after MRI. Q6 accuchecks while NPO, ACHS while eating. Had chest CT last night that shows nodule(s)/mass. at bedside for part of shift. Pt pleasant and cooperative with cares.
[2016-08-15 05:46] LABS: INR - (THERAPEUTIC) 1.21 (0.92-1.07); PROTIME 12.7 SECONDS (9.8-11.4)
[2016-08-15 08:41] LABS: BASOPHIL # 0.1 K/uL (0.0-0.2); BASOPHIL % 0.5 %; EOSINOPHIL # 0.4 K/uL (0.0-0.5); HEMATOCRIT 35.5 % (37.0-53.0); HEMOGLOBIN 11.7 g/dL (11.0-16.0); IMMATURE GRANULOCYTE % 0.3 %; LYMPHOCYTE # 1.2 K/uL (0.8-4.0); LYMPHOCYTE % 11.9 %; MCH 31.9 pg (27.0-34.0); MCV 96.7 fl (83.0-98.0); MONOCYTE # 0.9 K/uL (0.0-1.0); MONOCYTE % 8.6 %; MPV 10.3 fl (9.4-12.4); NEUTROPHIL # (ANC) 7.4 K/uL (1.4-9.0); NEUTROPHIL % 74.7 %; NRBC % 0 /100WBC (0-0.00); PLATELET COUNT 242 K/uL (150-450); RBC 3.67 M/uL (3.50-5.50); RDW-CV 12.5 % (11.9-14.6); WBC 9.9 K/uL (4.0-11.0)
[2016-08-15 08:56] LABS: ALBUMIN 2.3 gm/dL (3.5-5.0); ANION GAP 12.7 (10.0-19.0); CALCIUM 8.4 mg/dL (8.5-10.5); POTASSIUM 4.7 mMol/L (3.7-5.1); TOTAL BILIRUBIN 0.7 mg/dL (0.0-1.5); TOTAL PROTEIN 6.2 g/dL (6.0-8.4)
--- NOTE | 2016-08-15 11:45 | NUR ---
Introduced self/role to patients , as patient is down getting a biopsy. She wasn't sure if there would be any needs. currently walks with a cane and furniture walks. stated they are here under the [facility] since [facility] was full and [place]. She had a number to call to confirm things. I encouraged her to call them. Wrote my name on the marker board, will continue to follow. Plan to follow up with and patient tomorrow.
--- NOTE | 2016-08-15 17:38 | NUR ---
Patient is alert and oriented, VSS, on room air. 1 assist with gait belt, can get dizzy and has N/T to bilateral legs. Had a liver biopsy done today and an oncology consult. Patient states he is feeling a lot better. Hematest x3. Possible dimissal tomorrow per patient.
--- NOTE | 2016-08-16 04:50 | NUR ---
Significant Event: Patient A&O x 3. VSS on RA. Choudhary with light yellow drainage with sediment. IV to L) hand with NS at 75 ml/hr. ACHS accucheck, Mild SS. Patient had a liver biopsy yesterday, gauze dressing to midline abdomen. Hematest x 3 is ordered, none have been collect yet. Rested well throughout shift. is staying at [facility]. Follow up: Hematest x 3. Possible D/C home today.
[2016-08-16 06:16] LABS: ANION GAP 13.6 (10.0-19.0); CALCIUM 7.9 mg/dL (8.5-10.5); CREATININE 1.7 mg/dL (0.6-1.3); POTASSIUM 4.6 mMol/L (3.7-5.1); TOTAL BILIRUBIN 0.6 mg/dL (0.0-1.5); TOTAL PROTEIN 5.4 g/dL (6.0-8.4)
[2016-08-16 06:18] LABS: ALBUMIN 1.9 gm/dL (3.5-5.0)
--- NOTE | 2016-08-16 12:19 | NUR ---
Significant event: Patient is alert and oriented x3. VSS on room air. Has gauze and tegaderm to mid abdomen from liver biopsy. Abdomen is distended. Blood sugar at lunch was 232 and was given [address] is patent. Hematest x3. Has ambulated in [place].
--- NOTE | 2016-08-16 13:35 | NUR ---
Introduced self/role to patient, and SW [employer]er [employer] Pour Malena also present. Still unaware of any needs they would have. Possibly home tomorrow. If would need any DME would get thru the [facility]. No needs at this time.
--- NOTE | 2016-08-16 17:58 | NUR ---
Significant Event: Patient is alert and oriented x3. VSS and on RA. Hematest x3, has not had a stool yet. Choudhary in place. IV fluids infusing into the L)Hand. Had a liver bx yesterday. Accuchecks AC/HS. Up with SBA. Does very well. Has ambulated in the [place] today x2. Is to walk TID. Accuchecks AC/HS. Coverage given. Diabetic diet. Cooperative with cares.
--- NOTE | 2016-08-17 04:23 | NUR ---
Patient alert and oriented x3, very pleasant and cooperative, transfers well one assit with walker and gaitbelt, dye catheter in place for urinary retention draining dark yellow urine, dressing to abdomen clean dry and intact, needs hematest x3 did not have a stool this shift, c/o pain at 2320 given IV morphine needs order for oral pain medications, has rested well tonight, patient stated he thought that he may be discharged home today, he is also on mild sliding scale insulin was 200 at 2100 no insulin given,
[2016-08-17 05:15] LABS: ANION GAP 13.3 (10.0-19.0); CALCIUM 7.8 mg/dL (8.5-10.5); CREATININE 1.4 mg/dL (0.6-1.3); MAGNESIUM 2.1 mg/dL (1.8-2.6); POTASSIUM 4.3 mMol/L (3.7-5.1); TOTAL BILIRUBIN 0.7 mg/dL (0.0-1.5); TOTAL PROTEIN 5.2 g/dL (6.0-8.4)
[2016-08-17 05:17] LABS: ALBUMIN 1.9 gm/dL (3.5-5.0)
[2016-08-17] MEDS ORDERED: ALDACTONE25 MG PO (17:09)
[2016-08-17] MEDS ORDERED: ROXICODONE 5MG (5 MG PO (17:10)
--- NOTE | 2016-08-17 17:29 | NUR ---
D: ORDERS RECEIVED FOR THE PATIENT TO BE DISCHARGED TODAY TO HOME WITH HIS . I: DISMISSAL INSTRUCTIONS WERE PREPARED AND REVIEWED WITH THE PATIENT VIRTUALLY AND AT BEDSIDE BY THE PRIMARY NURSE SARA ROSENTHAL. THE FOLLOWING INFORMATION WAS DISCUSSED INCLUDING [employer] TEACHING SHEETS PROVIDED: DISCHARGE INSTRUCTIONS FOR CHRONIC KIDNEY DISEASE, DIABETES AND KIDNES DISEASE, MANAGING YOUR GLUCOSE LEVEL FOR DIABETES AND KIDNEY DISEASE, DISCHARGE FOR LIVER BIOPSY, PREVENTING DVT, ALDACTONE, OXYCODONE, HEALTHY MEALS FOR DIABETES, AND UNDERSTANDING CARBOHYDRATES. REVIEWED FOLLOWING UP APPOINTMENTS WITH K[facility]HA TORRES IN [facility]. REVIEWED ALL NEW PRESCRIPTIONS AND NEED TO TAKE THEM TO THE PHARMACY TO BE FILLED. R: THE PATIENT AND HIS BOTH VERBALIZED UNDERSTANDING OF THE DISMISSAL EDUCATION AT THE TIME OF TEACHING WITH NO FURTHER QUESTIONS. P; THE ABOVE INFORMATION WAS SHARED WITH THE PRIMARY NURSE THAT THE PATIENT DISMISSAL EDUCATION WAS COMPLETED. THE PATIENT IS READY FOR DISCHARGE TO THE FRONT DOOR VIA WHEEL CHAIR BY NURSING STAFF.
--- NOTE | 2016-08-17 18:44 | NUR ---
Significant event: Patient is alert and oriented x3. VSS. on room air. IV dc'd to left hand. Patient did not have a bowel movement while here, no hematests done. Choudhary was removed this morning. Patient has not voided, but self caths at home. is aware of this. Patient was given copy of dismissal instructions and education. Prescriptions also given to patient. Verbalizes understanding. Patient also present. Cooperative with cares. Ambulated to [facility] doors without difficulty.
--- NOTE | 2016-08-29 14:54 | NUR ---
Three attempts were made to make a post hospitalization follow up call. On the second call, I left a msg to have my call returned. Did not receive a return call.
== END 2016-08-17 17:58 | disposition disaster alternative care site (69) | DRG 375 ==
LOC: GMSU 14:01
PROVIDERS: Nurse Practitioner Family; ADMIT Internal Medicine
PROC: 0FB23ZX Excision of Left Lobe Liver, Percutaneous Approach, Diagnostic (ICD-10-PCS; principal; 2016-08-15)
DX: C78.6 Secondary malignant neoplasm of retroperitoneum and peritoneum (principal); N17.9 Acute kidney failure, unspecified; E08.22 Diabetes mellitus due to underlying condition with diabetic chronic kidney disease; R18.8 Other ascites; C78.7 Secondary malignant neoplasm of liver and intrahepatic bile duct; C80.1 Malignant (primary) neoplasm, unspecified; E87.5 Hyperkalemia; N18.3 Chronic kidney disease, stage 3 (moderate); I12.9 Hypertensive chronic kidney disease with stage 1 through stage 4 chronic kidney disease, or unspecified chronic kidney disease; Z87.891 Personal history of nicotine dependence; E78.5 Hyperlipidemia, unspecified; E03.9 Hypothyroidism, unspecified; F32.9 Major depressive disorder, single episode, unspecified; R74.0 Nonspecific elevation of levels of transaminase and lactic acid dehydrogenase [LDH]; N40.0 Benign prostatic hyperplasia without lower urinary tract symptoms; E29.1 Testicular hypofunction; H40.10X0 Unspecified open-angle glaucoma, stage unspecified; K59.00 Constipation, unspecified; Z79.4 Long term (current) use of insulin; Z79.82 Long term (current) use of aspirin
CPT/HCPCS: J0610; J2185; J2270; J7030; J7050